=== PATIENT | male | born 1955 | race African-American/Black ===

== ENCOUNTER 2018-10-01 14:40 | Emergency (ER) | payer MEDICAID ==
[~2018-10-01] VITALS: Ht 175.3 cm; Wt 117.0 kg
[2018-10-01 14:56] VITALS: BP 137/88
--- NOTE | 2018-10-01 15:23 | NUR ---
Patient/Caregiver given discharge instructions and they have confirmed that they understand the instructions. Patient ambulatory with steady gait. Pt left with all personal belongings.
== END 2018-10-01 15:29 | disposition home or self-care (01) ==
LOC: ED 15:15
DX: T16.1XXA Foreign body in right ear, initial encounter (principal); X58.XXXA Exposure to other specified factors, initial encounter; Y93.89 Activity, other specified; Y92.89 Other specified places as the place of occurrence of the external cause; Y99.8 Other external cause status
CPT/HCPCS: 69200; 99284